=== PATIENT | male | born 1995 | race Caucasian/White ===

== ENCOUNTER 2017-09-20 22:54 | Emergency (ER) | payer OTHER ==
[~2017-09-20] VITALS: Ht 170.2 cm; Wt 79.5 kg
[2017-09-20 22:55] VITALS: BP 142/93; PULSE 121; RESP 16; TEMP 98.5; O2SAT 99
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
== END 2017-09-21 00:49 | disposition home or self-care (01) ==
LOC: NEPC 22:54
DX: S01.81XA Laceration without foreign body of other part of head, initial encounter (principal); W22.8XXA Striking against or struck by other objects, initial encounter
CPT/HCPCS: 12011; 99282